=== PATIENT | female | born 1950 | race Caucasian/White ===

== ENCOUNTER 2017-01-05 16:40 | Emergency (ER) | payer OTHER ==
[~2017-01-05] VITALS: Ht 172.7 cm; Wt 87.9 kg
[2017-01-05 16:44] VITALS: TEMP 36.5; Ht 172.7 cm; Wt 87.9 kg
--- NOTE | 2017-01-05 17:20 | EMERGENCY ROOM VISIT NOTE ---
History Report prepared by Pastoraibrozina: Annabella Simmons Under the Supervision of: Dr. Get Hughes D.O. First contact with patient: 16:57 Chief Complaint: HEAD INJURY (MINOR) Stated Complaint: FELL, HIT HEAD AGAINST CAR DOOR History of Present Illness The patient is a 66 year old female who presents to the Emergency Room with complaints of constant head pain status post a head injury that occurred about an hour ago. The patient notes that she tripped and hit her head on a wooden door. Her head made an indent in the door. She has right sided frontal head pain secondary to the fall. She also hit her right elbow and currently has mild aching to the area. She reports that she threw her neck back when she tripped and has some neck pain. She used ice on her neck and forehead after the fall. Denies loss of consciousness or other complaints. She has not taken anything for pain. She is not on blood thinners. Source of History: patient Onset: 1 hour ago Position: head Timing: constant Associated Symptoms: + headache, + neck pain Note: Other symptoms: right elbow ache Review of Systems See HPI for pertinent positives & negatives. A total of 10 systems reviewed and were otherwise negative. Past Medical & Surgical Medical Problems: (1) HTN (hypertension) (2) Hypothyroidism Surgical Problems: (1) Hx of cholecystectomy (2) Hx of hysterectomy Family History Cancer Diabetes mellitus Heart disease Hypertension Kidney disease Social History Smoking Status: Never Smoker Marital Status: Housing Status: lives with significant other Allergies Coded Allergies: No Known Allergies (Unverified , 07/30/14) Physical Exam Vital Signs Date Time Temp Pulse Resp B/P Pulse Ox O2 Delivery O2 Flow Rate FiO2 01/05/17 18:01 79 18 162/88 95 01/05/17 17:07 16 97 01/05/17 16:44 36.5 77 16 170/102 97 Room Air Physical Exam GENERAL: Patient is awake, alert, and in no acute distress. Patient is resting comfortably and showing no signs of anxiety HEAD: Ecchymosis over the right eyebrow. EYES: The conjunctivae are clear. The pupils are round and reactive. EARS, NOSE, MOUTH AND THROAT: The nose is without any evidence of any deformity. Mucous membranes are moist tongue is midline NECK: Upper cervical tenderness to palpation but range of motion appeared intact. RESPIRATORY: Normal respiratory effort is noted there is no evidence of wheezing rhonchi or rales CARDIOVASCULAR: Regular rate and rhythm noted there no murmurs rubs or gallops normal S1 normal S2 GASTROINTESTINAL: The abdomen is soft. Bowel sounds are present in all quadrants. Abdomen is nontender MUSCULOSKELETAL/EXTREMITIES: There is no evidence of gross deformity full range of motion is noted in the hips and shoulders SKIN: There is no obvious evidence of any rash. There are no petechiae, pallor or cyanosis noted. NEUROLOGIC: Patient is awake alert and oriented x3 strength is symmetric patellar reflexes are 2+ bilaterally. GCS 15. Medical Decision & Procedures ER Provider Diagnostic Interpretation: Radiology results as stated below per my review and radiologist interpretation: RIGHT ELBOW MIN 3 VIEWS ROUTINE CLINICAL HISTORY: Right elbow pain following fall. COMPARISON: None FINDINGS: Alignment of the right elbow is anatomic. There is no evidence for joint effusion. No acute fracture is identified. There may be soft tissue swelling of the dorsal aspect of the proximal right forearm. IMPRESSION: No acute fracture or joint effusion of the right elbow. Electronically signed by: Tru William M.D. 01/05/2017 5:26 PM Dictated Date/Time: 01/05/2017 5:[address] OF THE CERVICAL SPINE WITHOUT CONTRAST CLINICAL HISTORY: Fall. COMPARISON STUDY: No previous studies for comparison. TECHNIQUE: Helical axial images of the cervical spine were obtained without IV contrast. Sagittal and coronal reconstructions were viewed. FINDINGS: There is reversal of the normal cervical lordosis. There is mild rightward curvature of the cervical spine. There is no fracture. [id number]-[id number] multilevel degenerative changes are present. IMPRESSION: No acute cervical spine fracture or subluxation. Electronically signed by: Tru William M.D. 01/05/2017 5:50 PM Dictated Date/Time: 01/05/2017 5:[address] OF THE HEAD WITHOUT CONTRAST CLINICAL HISTORY: Fall. COMPARISON STUDY: No previous studies for comparison. TECHNIQUE: Helical axial images of the head were obtained without IV contrast. Automated exposure control was utilized for the study. FINDINGS: No acute intracranial hemorrhage, midline shift or mass effect is present. Ventricular system is unremarkable for age. Basilar cisterns are patent. There are no extra axial collections. Moderate white matter hypodensities likely reflect small vessel disease. There is no calvarial fracture. Visualized portions of the sinuses and mastoid air cells are clear. IMPRESSION: 1. No acute intracranial findings. 2. No calvarial fracture. Electronically signed by: Tru William M.D. 01/05/2017 5:48 PM Dictated Date/Time: 01/05/2017 5:46 PM ED Course 1704: The patient was evaluated in room C1. A complete history and physical examination were performed. 1754: Upon reevaluation, the patient is resting comfortably. I discussed the results and treatment plan with the patient. She verbalized agreement of the treatment plan. The patient was discharged home. Medical Decision Prior records/ancillary studies reviewed. Triage Nursing notes reviewed. The patient's history was concerning for traumatic injury Differential diagnosis: Etiologies such as fracture, dislocation, intra-abdominal, pneumothorax, intrathoracic , intracranial, neurologic, as well as other traumatic pathologies were entertained. The patient is a 66-year-old female who presented to the emergency department after a significant fall. The patient fell forward striking her head as well as her elbow. She was very concerned because she actually broke a wooden door with her head. She had pain over her neck as well as her head. She had no focal neurologic deficits and did not request any medication for pain. Pain medication was offered. The patient did not appear to have any acute injury noted on CT the head or neck. X-ray the right elbow did not show any bony injury. The patient was encouraged to rest and avoid any strenuous activity. She was encouraged to follow-up with her primary care physician for reevaluation. She was also encouraged to continue using Motrin and Tylenol for pain but return to the emergency department immediately if symptoms change worsen or the need arises. Impression Primary Impression: Head injury Additional Impressions: Forehead contusion Cervical strain Contusion of right elbow Scribe Attestation The scribe's documentation has been prepared under my direction and personally reviewed by me in its entirety. I confirm that the note above accurately reflects all work, treatment, procedures, and medical decision making performed by me. Departure Information Dispostion Home / Self-Care Referrals Silvestre Vazquez M.D. (PCP) Patient Instructions ED Head Injury Closed, [facility], Neck Strain - [facility] Additional Instructions Rest and avoid any strenuous activity. Continue all medications as prescribed. Continue using Motrin and Tylenol as directed for pain. Follow-up with your family this week for reevaluation. Problem Qualifiers Primary Impression: Head injury Encounter type: initial encounter Qualified Codes: S09.90XA - Unspecified injury of head, initial encounter Additional Impressions: Forehead contusion Encounter type: initial encounter Qualified Codes: S00.83XA - Contusion of other part of head, initial encounter Cervical strain Encounter type: initial encounter Qualified Codes: S16.1XXA - Strain of muscle, fascia and tendon at neck level, initial encounter Contusion of right elbow Encounter type: initial encounter Qualified Codes: S50.01XA - Contusion of right elbow, initial encounter
--- NOTE | 2017-01-05 17:27 | DIAGNOSTIC IMAGING REPORT ---
RIGHT ELBOW MIN 3 VIEWS ROUTINE CLINICAL HISTORY: Right elbow pain following fall. COMPARISON: None FINDINGS: Alignment of the right elbow is anatomic. There is no evidence for joint effusion. No acute fracture is identified. There may be soft tissue swelling of the dorsal aspect of the proximal right forearm. IMPRESSION: No acute fracture or joint effusion of the right elbow. Electronically signed by: Tru William M.D. 01/05/2017 5:26 PM Dictated Date/Time: 01/05/2017 5:24 PM
--- NOTE | 2017-01-05 17:49 | DIAGNOSTIC IMAGING REPORT ---
CT OF THE HEAD WITHOUT CONTRAST CLINICAL HISTORY: Fall. COMPARISON STUDY: No previous studies for comparison. TECHNIQUE: Helical axial images of the head were obtained without IV contrast. Automated exposure control was utilized for the study. FINDINGS: No acute intracranial hemorrhage, midline shift or mass effect is present. Ventricular system is unremarkable for age. Basilar cisterns are patent. There are no extra axial collections. Moderate white matter hypodensities likely reflect small vessel disease. There is no calvarial fracture. Visualized portions of the sinuses and mastoid air cells are clear. IMPRESSION: 1. No acute intracranial findings. 2. No calvarial fracture. Electronically signed by: Tru William M.D. 01/05/2017 5:48 PM Dictated Date/Time: 01/05/2017 5:46 PM
--- NOTE | 2017-01-05 17:52 | DIAGNOSTIC IMAGING REPORT ---
CT OF THE CERVICAL SPINE WITHOUT CONTRAST CLINICAL HISTORY: Fall. COMPARISON STUDY: No previous studies for comparison. TECHNIQUE: Helical axial images of the cervical spine were obtained without IV contrast. Sagittal and coronal reconstructions were viewed. FINDINGS: There is reversal of the normal cervical lordosis. There is mild rightward curvature of the cervical spine. There is no fracture. [id number]-hz-iamqbuek multilevel degenerative changes are present. IMPRESSION: No acute cervical spine fracture or subluxation. Electronically signed by: Tru William M.D. 01/05/2017 5:50 PM Dictated Date/Time: 01/05/2017 5:48 PM
[2017-01-05 18:01] VITALS: BP 162/88; PULSE 79; O2SAT 95
== END 2017-01-05 18:03 | disposition home or self-care (01) ==
LOC: C.EDB 16:41 → C.EDC 18:03
DX: S09.90XA Unspecified injury of head, initial encounter (principal); S00.83XA Contusion of other part of head, initial encounter; S16.1XXA Strain of muscle, fascia and tendon at neck level, initial encounter; S50.01XA Contusion of right elbow, initial encounter; W01.0XXA Fall on same level from slipping, tripping and stumbling without subsequent striking against object, initial encounter; I10 Essential (primary) hypertension; E03.9 Hypothyroidism, unspecified; Z90.710 Acquired absence of both cervix and uterus; Z90.49 Acquired absence of other specified parts of digestive tract; Z80.9 Family history of malignant neoplasm, unspecified; Z83.3 Family history of diabetes mellitus; Z82.49 Family history of ischemic heart disease and other diseases of the circulatory system; Z84.1 Family history of disorders of kidney and ureter